=== PATIENT | male | born 1985 | race Hispanic/Latino ===

== ENCOUNTER 2017-10-02 02:47 | Emergency (ER) | payer OTHER ==
[~2017-10-02] VITALS: Ht 167.6 cm; Wt 70.0 kg
[2017-10-02 02:47] VITALS: BP 131/75
== END 2017-10-02 05:30 | disposition left against medical advice (07) | DRG 605 ==
LOC: ED 02:47 → EDBD 02:47 → ED 03:36
DX: S00.01XA Abrasion of scalp, initial encounter (principal); S16.1XXA Strain of muscle, fascia and tendon at neck level, initial encounter; S46.811A Strain of other muscles, fascia and tendons at shoulder and upper arm level, right arm, initial encounter; V58.6XXA Passenger in pick-up truck or van injured in noncollision transport accident in traffic accident, initial encounter; Z91.19 Patient's noncompliance with other medical treatment and regimen